=== PATIENT | female | born 1985 | race Caucasian/White ===

== ENCOUNTER 2023-06-04 13:03 | Emergency (ER) | payer OTHER, SELFPAY ==
--- NOTE | ~2023-06-04 | US_ITS ---
US breast RT limited DATE: 06/04/2023 14:25 INDICATION: Right breast pain. History of injury. TECHNIQUE: Real-time and color flow imaging of the upper outer, lower outer quadrants and subareolar area of right breast COMPARISON: None FINDINGS: No suspicious mass or shadowing, cyst or other significant sonographic finding is detected in the upper outer quadrant, lower outer quadrant where subareolar area. IMPRESSION: No suspicious sonographic mass or shadowing is detected. Consider bilateral diagnostic mammography given the complaint of right breast pain and the patient's age of almost 38 years, at which time routine mammographic screening is recommended Reviewed, dictated and finalized at [facility]. Reviewed, dictated and finalized at [facility]. T HEALTH CARE TECHNICIAN IMPRESSION: No suspicious sonographic mass or shadowing is detected. Consider bilateral diagnostic mammography given the complaint of right breast p ain and the patient's age of almost 38 years, at which time routine mammographi c screening is recommended
[2023-06-04 13:15] VITALS: BP 127/81; PULSE 100; RESP 16; TEMP 36.8; O2SAT 97
--- NOTE | 2023-06-04 17:53 | ED.SKABFB ---
HPI - Skin/Abscess/Foreign Bdy General Chief complaint: Skin/Abscess/Foreign Body Stated complaint: breast infection Time Seen by Provider: 06/04/23 13:11 History of Present Illness HPI narrative: Patient fell onto her right breast several months ago, and had a bruise there which got better. Has had antibiotics before for breast infection. A couple days ago she started having some mild tenderness to her right breast and wanted to make sure it was okay. Related Data Allergies Allergy/AdvReac Type Severity Reaction Status Date / Time No Known Allergies Allergy Verified 06/04/23 13:05 Review of Systems Review of Systems: CONST: No fever. HEENT: No sore throat C/V: No chest pain RESP: No cough GI: no abdominal pain : No dysuria. M/S: No joint pain. SKIN: ?rash? to right breast NEURO: [No headache or focal numbness or weakness] PSYCH: [No depression] Exam Narrative: EXAMINATION OF ORGAN SYSTEMS/BODY AREAS: Constitutional: Vital signs per nursing GENERAL:[No acute distress, non-toxic appearing.] HEAD: Normal with no signs of head trauma. EYES: EOMI, conjunctiva normal ENT: Hearing grossly intact LUNGS: Nonlabored breathing. HEART: [Regular rate and rhythm] ABD: [Soft], [nontender to palpation] BREAST: No obvious signs of skin erythema or induration, small area of tenderness to lateral breast but no actual pinpoint tenderness or fluctuance. EXT: Normal range of motion SKIN: [No rashes or lesions.] NEURO: [Alert and oriented x 3. No gross focal sensory or strength deficits.] PSYCH: Normal affect Course Vital Signs Vital signs: Vital Signs Temperature 98.3 F 06/04/23 13:15 Pulse Rate 100 06/04/23 13:15 Respiratory Rate 16 06/04/23 13:15 Blood Pressure 127/81 06/04/23 13:15 Pulse Oximetry 97 06/04/23 13:15 Oxygen Delivery Room Air 06/04/23 13:15 Temperature 98.3 F 06/04/23 13:15 Pulse Rate 100 06/04/23 13:15 Respiratory Rate 16 06/04/23 13:15 Blood Pressure 127/81 06/04/23 13:15 Pulse Oximetry 97 06/04/23 13:15 Oxygen Delivery Room Air 06/04/23 13:15 MDM - Skin/Abscess/Foreign Bdy MDM Narrative Medical decision making narrative: patient presenting with right-sided breast pain, she is well-appearing on exam, no obvious signs of hematoma or abscess. Breast US here does not show any obvious hematoma or abscess in area of tenderness. Discussed this with pt and f/u provided to breast surgery for further evaluation/workup as needed. I did also discuss with patient that her ultrasound here is only for obvious hematoma/ abscess, we are unable to diagnose breast lesions or masses and she will need a definitive breast ultrasound. Patient agreeable to this and expresses understanding. Discharge Plan Discharge Clinical Impression: Breast pain Patient Disposition: Home, Self-Care Condition: Stable Instructions: Antibiotic Form, Breast Mass (ED) Additional Instructions: No obvious signs of infection of bruising on the ultrasound. Please follow up with the breast surgeon if your symptoms continue or worsen. Follow-up/Referrals: PHYSICIAN,[employer] [Primary Care Provider] - Shahida Justice MD [Physician] - 3 Days
== END 2023-06-04 15:50 | disposition home or self-care (01) ==
PROVIDERS: Emergency Provider Emergency Medicine
DX: N64.4 Mastodynia (principal)
CPT/HCPCS: 76642; 99284

== ENCOUNTER 2023-10-05 10:48 | Outpatient (CLI) | payer OTHER, SELFPAY ==
--- NOTE | ~2023-10-05 | MM_ITS ---
EXAMINATION: MM diagnostic jose BI w david HISTORY: History of breast pain after trauma. TECHNIQUE: Additional 3-D tomosynthesis images of the breasts were performed and synthetic 2-D images were generated. CAD analysis was submitted and interpreted. COMPARISON: Ultrasound dated 06/04/2023 BREAST PARENCHYMAL COMPOSITION: Dense: The breasts are extremely dense, which lowers the sensitivity of mammography. FINDINGS: There are bilateral breast asymmetries with areas of nodular asymmetry obscured by dense fi broglandular tissue. No discrete mass or architectural distortion. There are no suspicious calcificat ions. IMPRESSION: 1. Bilateral breast asymmetries with dense fibroglandular tissue. No discrete mass. 2. Recommend complete bilateral breast ultrasound. BI-RADS Category 0: Incomplete: Needs additional imaging evaluation. Reviewed, dictated and finalized at [facility]. IMPRESSION: 1. Bilateral breast asymmetries with dense fibroglandular tissue. No discrete m ass. 2. Recommend complete bilateral breast ultrasound. BI-RADS Category 0: Incomplete: Needs additional imaging evaluation.
== END 2023-10-05 10:49 | disposition home or self-care (01) ==
LOC: ANHIMG 10:50
PROVIDERS: Visit Provider Surgery
DX: N64.89 Other specified disorders of breast (principal)
CPT/HCPCS: 77062; 77066; G0279

== ENCOUNTER 2024-02-07 09:22 | Outpatient (CLI) | payer OTHER, SELFPAY ==
--- NOTE | ~2024-02-07 | US_ITS ---
US breast BI complete INDICATION: Mastodynia TECHNIQUE: Dedicated bilateral complete breast ultrasound including all 4 quadrants in the subareolar locations COMPARISON: Mammogram dated 10/05/2023 FINDINGS: The breasts are composed of normal heterogeneous echotexture without focal solid or cystic mass. IMPRESSION: 1: Normal bilateral breast ultrasound. BI-RADS CATEGORY 1 - NEGATIVE Routine yearly screening mammogram and regular clinical breast examination are recommended. Reviewed, dictated and finalized at [facility].
== END 2024-02-07 09:23 | disposition home or self-care (01) ==
LOC: ANHIMG 09:23
PROVIDERS: Visit Provider Physician Assistant Surgical
DX: N64.4 Mastodynia (principal)
CPT/HCPCS: 76641

== ENCOUNTER 2024-04-30 09:51 | Outpatient (CLI) | payer OTHER, SELFPAY ==
--- NOTE | ~2024-04-30 | MR_ITS ---
MR breast BI wo/w con 04/30/2024 11:49 [facility] [employer] INDICATION: Breast pain TECHNIQUE: MRI of the breasts perform using standard protocol pre-and post IV contrast with the follo wing sequences: Axial T2 STIR, axial T1, axial vibrant T1 with fat suppression precontrast and multip hasic postcontrast. 14 cc MultiHance administered intravenously. COMPARISON: Comparison to multiple prior studies sequentially, with oldest reviewed study dated 06/04. FINDINGS: There are no abnormalities on the precontrast sequences. There is moderate background paren chymal enhancement. No enhancing lesions following contrast administration. No areas of enhancement meeting threshold criteria on CAD analysis. No evidence of signal abnormalities in the axillary or internal mammary node distributions. LEFT BREAST: No signal abnormalities on precontrast sequences. There is moderate background parenchy mal enhancement. No enhancing lesions following contrast administration. No areas of enhancement m eeting threshold criteria on CAD analysis. No evidence of signal abnormalities in the axillary or i nternal mammary node distributions. IMPRESSION: 1: Right breast: Negative. No evidence of malignancy. BI-RADS category 1. Recommend annual mammo graphy follow-up. 2: Left breast: Negative. No evidence of malignancy. BI-RADS category 1. Recommend annual mammogr aphy follow-up. Follow-up MRI may be useful for supplementing mammographic evaluation as clinically indicated. Reviewed, dictated and finalized at [facility]. [employer] IMPRESSION: 1: Right breast: Negative. No evidence of malignancy. BI-RADS category 1. Recommend annual mammography follow-up. 2: Left breast: Negative. No evidence of malignancy. BI-RADS category 1. Re commend annual mammography follow-up. Follow-up MRI may be useful for supplementing mammographic evaluation as clinic ally indicated.
== END 2024-04-30 09:52 | disposition home or self-care (01) ==
PROVIDERS: Visit Provider Physician Assistant Surgical
DX: N64.4 Mastodynia (principal)
CPT/HCPCS: 77049; A9577; C8908